=== PATIENT | male | born 1975 | race Hispanic/Latino ===

== ENCOUNTER 2017-08-17 16:55 | Emergency (ER) | payer OTHER ==
[2017-08-17] MEDS ORDERED: Mag-Al 1200 mg/1200 mg/30 ML UDCUP ONE (18:00)
[2017-08-17] MEDS ORDERED: Promethazine HCl 25 MG/ML VIAL ONE (18:00)
[2017-08-17] MEDS ORDERED: Lidocaine Viscous Sol 2% 15 ml UD Cup ONE (18:00)
[2017-08-17 18:07] LABS: #Basophils 0.1 thou/uL (0.0-0.2); #Eosinphils 0.1 thou/uL (0.0-0.7); #Lymphocytes 3.6 thou/uL (1.20-3.40); #Monocytes 0.9 thou/uL (0.11-0.59); #Neutrophils 5.8 thou/uL (1.40-6.50); %Basophils 0.5 % (0.0-1.0); %Eosinophils 0.5 % (0.0-10.0); %Lymphocytes 34.5 % (21.0-51.0); %Monocytes 8.6 % (0.0-10.0); %Neutrophils 55.9 % (42.0-75.0); Hemoglobin 15.6 g/dL (14.0-18.0); Mean Corpuscular HGB CONC 32.9 g/dL (32.0-36.0); Mean Corpuscular Volume 85.2 fl (80.0-94.0); Mean Platelet Volume 6.3 fL (7.4-10.4); Platelet Count 337 thou/uL (130-400); RBC Distribution Width 11.8 % (11.5-14.5); Red Blood Cell (RBC) Count 5.55 mill/uL (4.70-6.10); White Blood Cell (WBC) Count 10.4 thou/uL (4.8-10.8)
[2017-08-17 18:08] LABS: Bilirubin Small (Negative); Blood, Urine Negative (Negative); Clarity CLEAR (Clear); Glucose, Urine (Dipstick) >=1000 mg/dL (Negative); Leukocyte Negative (Negative); Nitrite Negative (Negative); Protein, Urine (Dipstick) 30 mg/dL (Neg-Trace); Urobilinogen 0.2 mg/dL (0.2-1.0); pH, Urine 5.5 (5.0-9.0)
[2017-08-17 18:14] LABS: Bacteria/HPF None Seen HPF (None Seen); Hyaline Casts/LPF 0-3 HYALINE CAST LPF (0-3 Hyaline); Pathc Cast-AUWi Flag 0.29 (0-2.49); RBC/HPF 0-3 HPF (0-3); Squamous Epithelial None Seen HPF (0-3); WBC/HPF 0-3 HPF (0-3)
[2017-08-17 18:16] LABS: Specific Gravity, Urine 1.043 (1.002-1.036)
[2017-08-17 18:19] LABS: MONO NEGATIVE CONTROL ZONE White (Negative) (White); MONO POSITIVE CONTROL Pink Line (Positive) (PINK/RED); Mononucleosis NEGATIVE (NEGATIVE)
--- NOTE | 2017-08-17 18:33 | RAD ---
ABDOMINAL SURVEY WITH UPRIGHT CHEST AND TWO VIEW ABDOMEN: 08/17/17 INDICATIONS: Abdominal pain with vomiting. A small nodule overlying the right mid lung is noted. This was seen on a prior PA chest of 08/28/14 a nd does not appear significantly changed. Lungs otherwise appear clear. Two views of abdomen shows scattered stool and gas throughout the colon. No abnormal calcification. N o significant small bowel gas. No evidence of free intraperitoneal air. IMPRESSION: No acute findings. POS: [facility]
[2017-08-17 18:37] LABS: ALT (SGPT) 24 U/L (8-55); AST (SGOT) 14 U/L (5-34); Albumin 4.3 g/dL (3.5-5.0); Alkaline Phosphatase 95 U/L (40-150); Anion Gap 18 mmol/L (10-20); BUN (Urea Nitrogen) 17 mg/dL (8.9-20.6); Bilirubin, Total 0.9 mg/dL (0.2-1.2); Calc. Creatinine Clearance 0 mL/min (70-130); Calcium 9.5 mg/dL (7.8-10.44); Carbon Dioxide 23 mmol/L (22-29); Chloride 102 mmol/L (98-107); Estimated GFR-MDRD Greater than 90; Globulin 3.3 g/dL (2.4-3.5); Glucose 84 mg/dL (70-105); Lipase 14 U/L (8-78); Potassium 4.1 mmol/L (3.5-5.1); Protein, Total 7.6 g/dL (6.0-8.3); Sodium 139 mmol/L (136-145)
[2017-08-17] MEDS ORDERED: Ibuprofen 800 MG TAB ONE (19:48)
== END 2017-08-17 20:00 | disposition home or self-care (01) ==
LOC: ERS 16:55
DX: K52.9 Noninfective gastroenteritis and colitis, unspecified (principal); E11.9 Type 2 diabetes mellitus without complications; E78.5 Hyperlipidemia, unspecified; F41.9 Anxiety disorder, unspecified; F32.9 Major depressive disorder, single episode, unspecified; Z87.891 Personal history of nicotine dependence; Z79.01 Long term (current) use of anticoagulants; Z79.899 Other long term (current) drug therapy
CPT/HCPCS: 74022; 80053; 81003; 81015; 83690; 85025; 86308; 87081; 87430; 96365; J2550

== ENCOUNTER 2019-10-28 20:13 | Inpatient (IN) | payer OTHER ==
[~2019-10-28 20:13] MED LIST: Iopamidol 370 76% 100 ML VIAL ONE
[2019-10-28 21:59] LABS: #Basophils 0.1 thou/uL (0.0-0.2); #Eosinphils 0.2 thou/uL (0.0-0.7); #Lymphocytes 2.9 thou/uL (1.20-3.40); #Monocytes 1.5 thou/uL (0.11-0.59); #Neutrophils 6.7 thou/uL (1.40-6.50); %Basophils 0.6 % (0.0-1.0); %Eosinophils 1.6 % (0.0-10.0); %Lymphocytes 25.7 % (21.0-51.0); %Neutrophils 59.1 % (42.0-75.0); Hemoglobin 14.5 g/dL (14.0-18.0); Mean Corpuscular HGB CONC 33.6 g/dL (32.0-36.0); Mean Corpuscular Hemoglobin 29.2 pg (27.0-31.0); Mean Corpuscular Volume 86.9 fL (78.0-98.0); Mean Platelet Volume 7.4 fL (7.4-10.4); Platelet Count 280 thou/uL (130-400); RBC Distribution Width 11.7 % (11.5-14.5); Red Blood Cell (RBC) Count 4.96 mill/uL (4.70-6.10); White Blood Cell (WBC) Count 11.3 thou/uL (4.8-10.8)
[2019-10-28] MEDS ORDERED: Morphine 4 MG/ML VIAL ONE (21:59)
[2019-10-28] MEDS ORDERED: Ondansetron ODT 4 MG TAB ONE (21:59)
[2019-10-28 22:02] LABS: Bilirubin Negative (Negative); Blood, Urine Negative (Negative); Clarity Clear (Clear); Glucose, Urine (Dipstick) Greater than 1000 mg/dL (Negative); Ketone, Urine Negative (Negative); Leukocyte Negative Leu/uL (Negative); Nitrite Negative (Negative); Protein, Urine (Dipstick) Negative (Neg-Trace); Urobilinogen Normal mg/dL (Less than 2)
--- NOTE | 2019-10-28 22:11 | RAD ---
XR Chest 1 View Portable HISTORY: Postop infection COMPARISON: 08/28/2014 FINDINGS: The heart size is normal. The lungs are well expanded without focal areas of consolidation, pneumothorax or pleural effusions. IMPRESSION: No radiographic evidence of acute cardiopulmonary process.
--- NOTE | 2019-10-28 22:17 | CT ---
CT Abdomen Pelvis W Con HISTORY: Hernia repair on 10/18/2019. Infection at wound site which is getting worse COMPARISON: 09/03/2012 FINDINGS: The lung bases are clear. There is a 5 mm low-density lesion in the anterior aspect of the left lobe of the liver, posterior the dome. This is too small to characterize. No calcified gallstones are seen. The spleen, pancreas, adrenal glands and kidneys appear normal. No free air, free fluid or lymp hadenopathy is noted in the abdomen or pelvis. A normal-appearing appendix is present. There is fecal material in the colon and rectum. No abdominal aortic aneurysm is seen. There are degenerative changes in the spine. There is edema in the subcutaneous venous fat of the anterior abdominal wall with a small amount of a ir at the level of the umbilicus. There is also some fluid and soft tissue density in this region without definite loculation. IMPRESSION: Probable phlegmonous changes in the region of the umbilicus. Infection cannot be excluded .
[2019-10-28 22:21] LABS: ALT (SGPT) 17 U/L (8-55); AST (SGOT) 13 U/L (5-34); Albumin 4.1 g/dL (3.5-5.0); Alkaline Phosphatase 112 U/L (40-110); Anion Gap 13 mmol/L (10-20); BUN (Urea Nitrogen) 12 mg/dL (8.9-20.6); Bilirubin, Total 0.5 mg/dL (0.2-1.2); Calc. Creatinine Clearance 0 mL/min (70-130); Calcium 9.3 mg/dL (7.8-10.44); Carbon Dioxide 30 mmol/L (22-29); Chloride 98 mmol/L (98-107); Estimated GFR-MDRD Greater than 90; Globulin 3.6 g/dL (2.4-3.5); Glucose 136 mg/dL (70-105); Potassium 4.3 mmol/L (3.5-5.1); Protein, Total 7.7 g/dL (6.0-8.3); Sodium 137 mmol/L (136-145)
[2019-10-28] MEDS ORDERED: Sodium Chloride 0.9% 100 ML ONE (22:32)
[2019-10-28] MEDS ORDERED: Cefepime 2 GM VIAL ONE (22:32)
[2019-10-28] MEDS ORDERED: Vancomycin 1.5 GRAM/300 ML BAG 1.5 GM in Premix Bag 1 BAG IVPB SCH (23:00)
--- NOTE | 2019-10-28 23:09 | PDOC.HHP ---
Hospitalist HPI - History of Present Illness Abdominal pain History of Present Illness: Patient is a 44-year-old male with past medical history significant for hernia repair and diabetes. He states that he had laparoscopic surgery at [facility] for hernia repair on 10/18/2019. He states that the wound site got infected and he was seen in the [facility] ER on 10/26/2019. They did an I& D at the bedside after performing a CT scan. He was started on doxycycline after being given a dose of IV Rocephin. He states that he has had increased redness and pain at the site of the surgery near the umbilicus since that time. He denies any further drainage. He describes abdominal pain as aching in the lower mid area that has not gone away since his surgery. He denies any fever, chest pain, nausea, vomiting, shortness of breath, contact with sick persons, incisional site drainage. ED Course: Today in the ER they completed lab work, chest x-ray, CT of the abdomen, and urinalysis. He received a dose of Zofran, morphine, cefepime, and vancomycin. Hospitalist ROS - Review of Systems Constitutional: denies: fever, chills, sweats, weakness, malaise, other Eyes: denies: pain, vision change, conjunctivae inflammation, eyelid inflammation, redness, other ENT: denies: ear pain, ear discharge, nose pain, nose discharge, nose congestion , mouth pain, mouth swelling, throat pain, throat swelling, other Respiratory: denies: cough, dry, shortness of breath, hemoptysis, SOB with excertion, pleuritic pain, sputum, wheezing, other Cardiovascular: denies: chest pain, palpitations, orthopnea, paroxysmal noc. dyspnea, edema, light headedness, other Genitourinary: denies: dysuria, frequency, incontinence, hematuria, retention, other Musculoskeletal: denies: neck pain, shoulder pain, arm pain, back pain, hand pain, leg pain, foot pain, other Skin: reports: other (Redness of the abdomen at surgical site) Neurological: denies: weakness, numbness, incoordination, change in speech, confusion, seizures, other All other systems reviewed; all pertinent +/- noted in HPI/Subj - Medication Medications: Allergies: Acetaminophen, cephalexin, Glucophage, hydrocodone, Keflex, metformin, [place], penicillin, tramadol Current medications: doxycycline hyclate oral TueOct 28, 2019 21:06 SKYLER Moya, Sania tablet : Strength - 100 mg : ORAL Patient Dose: 1 tab(s) Oral 2 times a day. oxyCODONE TueOct 28, 2019 21:07 SKYLER Moya, Sania capsule : Strength - 5 mg : ORAL Patient Dose: 5/325mg tab(s) Oral every 6 hours PRN. atorvastatin TueOct 28, 2019 21:08 SKYLER Moya, June TABLET : Strength - 10 mg : ORAL Patient Dose: 40 mg Oral once a day (at bedtime). Lexapro TueOct 28, 2019 21:08 SKYLER Moya, June TABLET : Strength - 20 mg : ORAL Patient Dose: 1 tab(s) Oral once a day. Farxiga TueOct 28, 2019 21:08 SKYLER Moya, Sania TABLET : Strength - 10 mg : ORAL Patient Dose: 1 tab(s) Oral once a day. gabapentin TueOct 28, 2019 21:09 SKYLER Moya, June capsule : Strength - 300 mg : ORAL Patient Dose: 2 tab(s) Oral 2 times a day. CeleBREX TueOct 28, 2019 21:09 SKYLER Moya, Sania capsule : Strength - 200 mg : ORAL Patient Dose: 1 cap(s) Oral 2 times a day. glipiZIDE TueOct 28, 2019 21:11 SKYLER Moya, Sania TABLET : Strength - 5 mg : ORAL Patient Dose: 1 tab(s) Oral 3 times a day. losartan TueOct 28, 2019 21:11 SKYLER Moya, June TABLET : Strength - 25 mg : ORAL Patient Dose: 100 mg Oral once a day. multivitamin oral TueOct 28, 2019 21:11 SKYLER Moya, Sania TABLET : ORAL Patient Dose: 1 tab(s) Oral once a day. Protonix oral TueOct 28, 2019 21:11 SKYLER Moya, June TABLET, DELAYED RELEASE (ENTERIC COATED) : Strength - 40 mg : ORAL Patient Dose: 1 tab(s) Oral once a day. hyoscyamine TueOct 28, 2019 21:11 SKYLER Moya, June TABLET : Strength - 0.15 mg : ORAL Patient Dose: 0.375 mg Oral every 12 hours. Actos TueOct 28, 2019 21:11 SKYLER Moya, Sania TABLET : Strength - 30 mg : ORAL Patient Dose: 1 tab(s) Oral once a day. Reglan oral TueOct 28, 2019 21:11 SKYLER Moya, Sania TABLET : Strength - 10 mg : ORAL Patient Dose: 1 tab(s) Oral 2 times a day. Zanaflex [place] Oct 28, 2019 21:12 SKYLER Moya, Sania capsule : Strength - 2 mg : ORAL Patient Dose: 1-2 tab(s) Oral As Needed. Hospitalist History - Past Medical History Source: patient Cardiac: reports: HTN, Hyperlipidemia Psych: reports: Anxiety, Depression Rheumatologic: reports: Fibromyalgia Endocrine: reports: Diabetes (Type II) - Past Surgical History Past Surgical History: reports: Hernia Repair, Tonsillectomy - Family History Family History: reports: Other (Coronary artery disease) - Social History Smoking Status: Current some day smoker Tobacco Type: cigarettes Alcohol: reports: Occassional Drugs: reports: none - Exam General Appearance: NAD, awake alert Eye: PERRL, anicteric sclera ENT: normocephalic atraumatic, moist mucosa Neck: supple, no lymphadenopathy Heart: RRR (Tachycardic), no murmur, no gallops, no rubs, normal peripheral pulses Respiratory: CTAB, no wheezes, no rales, no ronchi Gastrointestinal: normal bowel sounds, tender to palpation, voluntary guarding Extremities: no cyanosis, no edema Skin - other findings: Erythema below umbilicus Psychiatric: normal affect, normal behavior Hospitalist Results - Labs Result Diagrams: 10/28/19 21:45 10/28/19 21:44 Lab results: WBC 11.3 thou/uL (4.8-10.8) H 10/28/19 21:45 Hgb 14.5 g/dL (14.0-18.0) 10/28/19 21:45 Hct 43.1 % (42.0-52.0) 10/28/19 21:45 MCV 86.9 fL (78.0-98.0) 10/28/19 21:45 Plt Count 280 thou/uL (130-400) 10/28/19 21:45 Neutrophils % 59.1 % (42.0-75.0) 10/28/19 21:45 Sodium 137 mmol/L (136-145) 10/28/19 21:44 Potassium 4.3 mmol/L (3.5-5.1) 10/28/19 21:44 Chloride 98 mmol/L (98-107) 10/28/19 21:44 Carbon Dioxide 30 mmol/L (22-29) H 10/28/19 21:44 BUN 12 mg/dL (8.9-20.6) 10/28/19 21:44 Creatinine 0.72 mg/dL (0.7-1.3) 10/28/19 21:44 Glucose 136 mg/dL (70-105) H 10/28/19 21:44 Lactic Acid 0.9 mmol/L (0.5-2.2) 10/28/19 21:45 Calcium 9.3 mg/dL (7.8-10.44) 10/28/19 21:44 Total Bilirubin 0.5 mg/dL (0.2-1.2) 10/28/19 21:44 AST 13 U/L (5-34) 10/28/19 21:44 ALT 17 U/L (8-55) 10/28/19 21:44 Alkaline Phosphatase 112 U/L (40-110) H 10/28/19 21:44 Serum Total Protein 7.7 g/dL (6.0-8.3) 10/28/19 21:44 Albumin 4.1 g/dL (3.5-5.0) 10/28/19 21:44 Urine Ketones Negative mg/dL (Negative) 10/28/19 Unknown Urine Blood Negative (Negative) 10/28/19 Unknown Urine Nitrite Negative (Negative) 10/28/19 Unknown Ur Leukocyte Esterase Negative Lucila/uL (Negative) 10/28/19 Unknown Laboratory Tests 10/28/19 21:45 Lactic Acid 0.9 - Radiology Interpretation CT scan - abdomen Status: report reviewed by me Additional Comment: IMPRESSION: Probable phlegmonous changes in the region of the umbilicus. Infection cannot be excluded Chest x-ray Status: report reviewed by me Additional Comment: IMPRESSION: No radiographic evidence of acute cardiopulmonary process. Hospitalist H&P A/P - Problem (1) Cellulitis Code(s): L03.90 - CELLULITIS, UNSPECIFIED Status: Acute (2) Diabetes mellitus, type 2 Status: Chronic (3) Hyperlipidemia Code(s): E78.5 - HYPERLIPIDEMIA, UNSPECIFIED Status: Chronic - Plan Plan: Cellulitis Start patient on clindamycin Await blood culture results Repeat a.m. labs Continue to monitor vital signs Diabetes type 2 Accu-Cheks AC/HS Cover with mild SSI Restart patient's home medications Hyperlipidemia Restart patient's home medications VTE prophylaxis with SCDs, GI prophylaxis with Protonix CODE STATUS: Full Surrogate decision maker: , Ibis
[2019-10-28] MEDS ORDERED: Dextrose 5% in Water 1,000 ML IV PRN (23:24)
[2019-10-28] MEDS ORDERED: Dextrose 50% Abboject 50 ML SYRINGE SLOW IVP PRN (23:24)
[2019-10-28] MEDS ORDERED: Ibuprofen 200 MG TAB PO PRN (23:31)
[2019-10-28] MEDS ORDERED: Clindamycin/D5W 900 MG in Premix Bag 1 BAG IVPB SCH (23:59)
[2019-10-29] MEDS ORDERED: diphenhydrAMINE 50 MG/ML VIAL ONE (01:00)
[2019-10-29 03:02] VITALS: BMI 29.5
[2019-10-29] MEDS ORDERED: Morphine 2 MG/ML VIAL SLOW IVP SCH (03:15)
[2019-10-29] MEDS ORDERED: diphenhydrAMINE 25 MG in Sodium Chloride 0.9% 50 ML IVPB SCH (03:30)
[2019-10-29] MEDS ORDERED: Acetaminophen 325 MG TAB PO PRN (04:39)
[2019-10-29 05:31] LABS: #Basophils 0.1 thou/uL (0.0-0.2); #Eosinphils 0.2 thou/uL (0.0-0.7); #Lymphocytes 2.8 thou/uL (1.20-3.40); #Monocytes 1.5 thou/uL (0.11-0.59); #Neutrophils 5.7 thou/uL (1.40-6.50); %Basophils 0.5 % (0.0-1.0); %Eosinophils 2.3 % (0.0-10.0); %Lymphocytes 27.2 % (21.0-51.0); %Monocytes 14.2 % (0.0-10.0); %Neutrophils 55.7 % (42.0-75.0); Hemoglobin 12.7 g/dL (14.0-18.0); Mean Corpuscular HGB CONC 32.7 g/dL (32.0-36.0); Mean Corpuscular Hemoglobin 28.4 pg (27.0-31.0); Mean Corpuscular Volume 86.8 fL (78.0-98.0); Mean Platelet Volume 7.5 fL (7.4-10.4); Platelet Count 267 thou/uL (130-400); RBC Distribution Width 11.6 % (11.5-14.5); Red Blood Cell (RBC) Count 4.49 mill/uL (4.70-6.10); White Blood Cell (WBC) Count 10.2 thou/uL (4.8-10.8)
[2019-10-29 05:47] LABS: Anion Gap 13 mmol/L (10-20); BUN (Urea Nitrogen) 13 mg/dL (8.9-20.6); Calc. Creatinine Clearance 149 mL/min (70-130); Calcium 8.4 mg/dL (7.8-10.44); Carbon Dioxide 26 mmol/L (22-29); Chloride 98 mmol/L (98-107); Estimated GFR-MDRD Greater than 90; Glucose 316 mg/dL (70-105); Potassium 3.7 mmol/L (3.5-5.1); Sodium 133 mmol/L (136-145)
[2019-10-29] MEDS: Clindamycin/D5W 900 MG in Premix Bag 1 BAG IVPB SCH ×3 (06:37→21:55)
[2019-10-29] MEDS: HumaLOG 300 UNITS/3 ML VIAL SC PRN ×2 (06:48→20:26)
[2019-10-29] MEDS ORDERED: tiZANidine HCl 4 MG TAB PO PRN (07:32)
[2019-10-29] MEDS ORDERED: Dapagliflozin Propanediol 5 MG TAB PO SCH (09:00)
[2019-10-29] MEDS: Vancomycin HCl 1.25 GM in Sodium Chloride 0.9% 250 ML 300 ML IVPB SCH ×2 (09:20→18:24)
[2019-10-29] MEDS: Gabapentin 300 MG CAP PO SCH ×2 (09:21→20:14)
[2019-10-29] MEDS: Pioglitazone HCl 15 MG TAB PO SCH (09:21)
[2019-10-29] MEDS: Losartan 25 MG TAB PO SCH (09:21)
[2019-10-29] MEDS: Escitalopram Oxalate 20 mg Tablet PO SCH (09:22)
[2019-10-29] MEDS ORDERED: EPHEDRINE 25 MG/5 ML SYRINGE ONE (09:44)
[2019-10-29] MEDS ORDERED: Lidocaine 1% PF 5 ML VIAL ONE (09:44)
[2019-10-29] MEDS ORDERED: Ondansetron PF 4 MG/2 ML Vial ONE (09:44)
[2019-10-29] MEDS ORDERED: PROPOFOL 200 MG/20 ML VIAL ONE (09:44)
[2019-10-29 10:53] LABS: Troponin I Less than 0.010 ng/mL (< 0.028)
[2019-10-29] MEDS ORDERED: Ketorolac Tromethamine 30 MG/ML VIAL IVP PRN (11:46)
[2019-10-29] MEDS ORDERED: Ketorolac Tromethamine 30 MG/ML VIAL IVP SCH (12:00)
[2019-10-29] MEDS ORDERED: Acetaminophen 500 MG TAB PO SCH (12:00)
--- NOTE | 2019-10-29 12:30 | CON ---
DATE OF CONSULTATION: HISTORY OF PRESENT ILLNESS: Mark Lee is a 44-year-old male patient, had umbilical hernia repair at [facility] on October 17. He does not know whether mesh was used or not. He had a supraumbilical incision. This was done as an open repair by Dr. Philippe. The patient states he went back to the emergency room in 1 to 2 days postoperatively, had pain around the area and redness in the area, was aspirated by the emergency room physician as he states the surgeon refused to come into see him. He does not recall the nature of the fluid aspirated nor the results of any cultures. He presents to our emergency room yesterday, admitted by the hospitalist for increased redness. He has remained afebrile. His white count was 11 yesterday, 10 today. CAT scan of the abdomen and pelvis revealed a complex fluid collection infraumbilical and area of redness and tenderness. There were no bowel loops. The hernia repair appears to be intact. As he is having increased pain and there is significant redness and induration and tenderness, I would recommend incision and drainage and healing by secondary intention with wound VAC application. The patient is agreeable, we will plan that today. Unfortunately, despite n.p.o. instructions, he ate a peach at 8:00 this morning. COVID testing is pending and results should be available this afternoon. ALLERGIES: CEPHALEXIN, HYDROCODONE, METFORMIN, PENICILLINS, TRAMADOL. SOCIAL HISTORY: Tobacco, 1/2 pack per day. Alcohol, rarely. MEDICATIONS: 1. Zanaflex. 2. Reglan. 3. . 4. Protonix. 5. Gabapentin. 6. Doxycycline. 7. Pioglitazone. 8. Cozaar. 9. Lexapro. 10. . 11. Atorvastatin. PAST SURGICAL HISTORY: Tonsillectomy and adenoidectomy, left carpal tunnel release, circumcision, umbilical hernia repair on October 17 at [facility] in 2019. PAST MEDICAL HISTORY: Diabetes mellitus type 2, non-insulin dependent; hypertension; occasionally elevated cholesterol, which he off and on takes medications for; fibromyalgia. REVIEW OF SYSTEMS: Ten-point noncontributory. FAMILY HISTORY: Noncontributory. PHYSICAL EXAMINATION: VITAL SIGNS: Height is 5 feet and 9 inches, weight 200 pounds, 29 BMI. Temperature 98.2, pulse 78, blood pressure 113/74. HEAD, EARS, EYES, NOSE, AND THROAT: Unremarkable. LUNGS: Clear to auscultation. CARDIAC: Regular rate and rhythm without murmur or gallop. ABDOMEN: Soft. Umbilical area reveals a supraumbilical scar well healed. Below the umbilicus, there is an area of induration, redness, exquisite tenderness. It is a raised area, very tender. EXTREMITIES: Unremarkable. ASSESSMENT AND PLAN: 1. Wound infection postoperatively. We would recommend incision and drainage, probably wound VAC application, healing by secondary intention. He understands risks and benefits of procedure, and consents. We will plan that today after adequate n.p.o. status and awaiting COVID screening. There has been no history of COVID exposure or illness. He reports a negative COVID test at [facility] last week preoperatively. 2. Diabetes mellitus, type 2. 3. Fibromyalgia. 4. Hypertension. 5. Elevated cholesterol. Job ID: [id number]
--- NOTE | 2019-10-29 13:01 | PDOC.HOSPP ---
- Subjective Encounter Date: 10/29/19 Encounter Time: 09:45 Subjective: c/o abd pain around the surgical site with redness and elevation of an area below the umbilicus no bm today, no nausea or vomiting - Objective Vital Signs & Weight: Vital Signs (12 hours) Temp Pulse Resp BP BP Pulse Ox 10/29/19 11:17 98.2 F 78 16 113/74 97 10/29/19 07:53 98.2 F 82 16 120/64 96 10/29/19 06:35 86 16 119/73 95 10/29/19 04:31 99 F 95 16 126/77 97 10/29/19 02:25 98.6 F 93 18 121/79 95 Weight Weight 200 lb Result Diagrams: 10/29/19 04:59 10/29/19 04:59 Additional Labs: Accuchecks 10/29/19 11:24 POC Glucose 150 H Hospitalist ROS - Medication Medications: Active Medications Generic Name Dose Route Start Last Admin Trade Name Freq PRN Reason Stop Dose Admin Escitalopram Oxalate 20 mg 10/29/19 09:00 10/29/19 09:22 Lexapro PO 20 mg DAILY ANTHONY Administration Gabapentin 600 mg 10/29/19 09:00 10/29/19 09:21 Neurontin PO 600 mg BID ANTHONY Administration Vancomycin HCl 1.25 gm/ Sodium 300 mls @ 200 mls/hr 10/29/19 08:00 10/29/19 09:20 Chloride IVPB 300 mls 0800,1600,2359 ANTHONY Administration Clindamycin Phosphate/Dextrose 50 mls @ 100 mls/hr 10/29/19 06:00 10/29/19 06 :37 900 mg/ Device IVPB 50 mls Q8HR ANTHONY Administration Insulin Human Lispro 0 units 10/28/19 23:24 10/29/19 06:48 Humalog SC 5 unit .MILD SLIDING SCALE PRN Administration Mild Correctional Scale Losartan Potassium 100 mg 10/29/19 09:00 10/29/19 09:21 Cozaar PO 100 mg DAILY ANTHONY Administration Pantoprazole Sodium 40 mg 10/29/19 09:00 10/29/19 09:22 Protonix PO 40 mg DAILY ANTHONY Administration Pioglitazone HCl 30 mg 10/29/19 09:00 10/29/19 09:21 Actos PO 30 mg DAILY ANTHONY Administration - Exam General Appearance: awake alert Eye: PERRL, anicteric sclera ENT: no oropharyngeal lesions, moist mucosa Neck: supple, no JVD Heart: RRR, no murmur Respiratory: no wheezes, no rales Gastrointestinal: soft, normal bowel sounds Gastrointestinal - other findings: has induration and raised area beneath umbilicus suspicious for abscess, er Extremities: no cyanosis, no edema Neurological: cranial nerve grossly intact, no focal deficits Psychiatric: normal affect, A&O x 3 Hosp A/P (1) Cellulitis Code(s): L03.90 - CELLULITIS, UNSPECIFIED Status: Acute Qualifiers: Site of cellulitis of trunk: umbilicus (2) History of umbilical hernia repair Code(s): Z98.890 - OTHER SPECIFIED POSTPROCEDURAL STATES; Z87.19 - PERSONAL HISTORY OF OTHER DISEASES OF THE DIGESTIVE SYSTEM Status: Acute (3) Diabetes mellitus, type 2 Status: Chronic Qualifiers: Diabetes mellitus chcf insulin use: without superintendent container 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
[2019-10-29 15:04] LABS: SARS-CoV-2 MS2 Positive; SARS-CoV-2 N Gene Negative; SARS-CoV-2 S Gene Negative; SARS-CoV-2 by NAA Not Detected (NotDetected); SARS-CoV-2 orf1ab Negative
[2019-10-29] MEDS: Sodium Chloride 0.9% 1,000 ML IV SCH ×2 (15:28→20:27)
[2019-10-29] MEDS ORDERED: Fentanyl 100 MCG/2 ML VIAL ONE (16:12)
[2019-10-29] MEDS ORDERED: Ibuprofen 600 MG TAB PO PRN (16:41)
[2019-10-29] MEDS ORDERED: Bupivacaine 0.25% HCL 30 ML VIAL ONE (16:52)
[2019-10-29] MEDS ORDERED: Lidocaine 1% w/Epinephrine 1:100K 20 ML VIAL ONE (16:52)
[2019-10-29] MEDS ORDERED: Midazolam HCl 2 mg/2 ml Vial ONE (16:54)
[2019-10-29] MEDS ORDERED: Ibuprofen 200 MG TAB PO PRN (16:57)
[2019-10-29] MEDS: Atorvastatin Calcium 20 MG TAB PO SCH (20:14)
[2019-10-29] MEDS: Acetaminophen 500 MG TAB PO PRN (22:05)
[2019-10-29 23:13] LABS: Vancomycin, Trough 13.8 ug/mL
--- NOTE | 2019-10-29 23:18 | OP ---
DATE OF PROCEDURE: 10/29/2019 [facility]OPERATIVE DIAGNOSIS: [facility]. POSTOPERATIVE DIAGNOSIS: [facility] with postoperative infection. PROCEDURE PERFORMED: Incision and drainage of postoperative wound infection with abscess, culture and sensitivity submitted. ANESTHESIA: General, local 0.5% Marcaine 30 mL mixed with 1% Xylocaine with epinephrine 20 mL, total volume used. DESCRIPTION OF PROCEDURE: The patient was taken to the operating room, where under general anesthesia, abdomen was prepared with ChloraPrep and draped in routine fashion. Local anesthetic mixture was infiltrated into the skin and subcutaneous tissue about the operative site. Infraumbilical incision was made and carried down to skin and subcutaneous tissue, down to the fascia which palpated to be intact. Some of the redundant suture was removed. There was abundant purulent material sent for culture and sensitivity. The incision was about 4 cm infraumbilical. The supraumbilical surgical incision was intact. Wound Care Team arrived to place wound VAC after wound irrigated. The patient tolerated the procedure well. Job ID: [id number]
[2019-10-29] MEDS: Vancomycin HCl 1.25 GM in Sodium Chloride 0.9% 250 ML 250 ML IVPB SCH (23:44)
[2019-10-30] MEDS: Sodium Chloride 0.9% 1,000 ML IV SCH ×3 (04:47→23:00)
[2019-10-30] MEDS: Acetaminophen 500 MG TAB PO PRN ×3 (06:19→21:43)
[2019-10-30] MEDS: Clindamycin/D5W 900 MG in Premix Bag 1 BAG IVPB SCH ×3 (06:24→23:03)
[2019-10-30] MEDS: HumaLOG 300 UNITS/3 ML VIAL SC PRN ×3 (06:24→21:54)
[2019-10-30 07:35] LABS: Troponin I 0.012 ng/mL (< 0.028)
[2019-10-30 10:38] LABS: Troponin I Less than 0.010 ng/mL (< 0.028)
[2019-10-30] MEDS: Losartan 25 MG TAB PO SCH (11:41)
[2019-10-30] MEDS: Pioglitazone HCl 15 MG TAB PO SCH (11:42)
[2019-10-30] MEDS: Gabapentin 300 MG CAP PO SCH ×2 (11:42→21:40)
[2019-10-30] MEDS: Empagliflozin 25 MG TAB PO SCH (11:43)
[2019-10-30] MEDS: Escitalopram Oxalate 20 mg Tablet PO SCH (11:50)
--- NOTE | 2019-10-30 12:00 | PDOC.HOSPP ---
- Subjective Encounter Date: 10/30/19 Encounter Time: 09:30 Subjective: has some pain where wound vac is placed no nausea overall feels better - Objective Vital Signs & Weight: Vital Signs (12 hours) Temp Pulse Resp BP BP Pulse Ox 10/30/19 07:33 98.8 F 80 20 138/72 100 10/30/19 03:42 98.3 F 71 18 117/75 99 10/29/19 23:44 98.4 F 97 16 118/73 97 Weight Weight 200 lb I&O: 10/29/19 10/30/19 10/31/19 06:59 06:59 06:59 Intake Total 900 Balance 900 Result Diagrams: 10/29/19 04:59 10/29/19 04:59 Additional Labs: Accuchecks 10/30/19 10/29/19 10/29/19 06:23 20:27 15:25 POC Glucose 203 H 290 H 247 H 10/29/19 10/29/19 11:24 06:53 POC Glucose 150 H 337 H Hospitalist ROS - Medication Medications: Active Medications Generic Name Dose Route Start Last Admin Trade Name Freq PRN Reason Stop Dose Admin Acetaminophen 1,000 mg 10/29/19 11:46 10/30/19 06:19 Tylenol PO 1,000 mg Q6H PRN Administration Moderate Pain (4-6) Atorvastatin Calcium 40 mg 10/29/19 21:00 10/29/19 20:14 Lipitor PO 40 mg HS ANTHONY Administration Escitalopram Oxalate 20 mg 10/29/19 09:00 10/29/19 09:22 Lexapro PO 20 mg DAILY ANTHONY Administration Gabapentin 600 mg 10/29/19 09:00 10/29/19 20:14 Neurontin PO 600 mg BID ANTHONY Administration Clindamycin Phosphate/Dextrose 50 mls @ 100 mls/hr 10/29/19 06:00 10/30/19 06 :24 900 mg/ Device IVPB 50 mls Q8HR ANTHONY Administration Sodium Chloride 1,000 mls @ 120 mls/hr 10/29/19 12:00 10/30/19 04:47 Normal Saline 0.9% IV Not Given .Q8H20M ANTHONY Vancomycin HCl 1.25 gm/ Sodium 250 mls @ 166.667 mls/hr 10/29/19 23:59 23:44 Chloride IVPB 250 mls 0800,1600,2359 ANTHONY Administration Insulin Human Lispro 0 units 10/28/19 23:24 10/30/19 06:24 Humalog SC 3 unit .MILD SLIDING SCALE PRN Administration Mild Correctional Scale Insulin Human Lispro 0 units 10/28/19 23:24 10/29/19 20:26 Humalog SC 3 unit .BEDTIME SLIDING SC PRN Administration Bedtime Correctional Scale Losartan Potassium 100 mg 10/29/19 09:00 10/29/19 09:21 Cozaar PO 100 mg DAILY ANTHONY Administration Pantoprazole Sodium 40 mg 10/29/19 09:00 10/29/19 09:22 Protonix PO 40 mg DAILY ANTHONY Administration Pioglitazone HCl 30 mg 10/29/19 09:00 10/29/19 09:21 Actos PO 30 mg DAILY ANTHONY Administration - Exam General Appearance: awake alert Eye: PERRL, anicteric sclera ENT: no oropharyngeal lesions, moist mucosa Neck: supple, no JVD Heart: RRR, no murmur Respiratory: no wheezes, no rales Gastrointestinal: soft, non-distended, normal bowel sounds Gastrointestinal - other findings: wound vac+ Extremities: no cyanosis, no edema Neurological: cranial nerve grossly intact, no focal deficits Psychiatric: A&O x 3 Hosp A/P (1) Cellulitis Code(s): L03.90 - CELLULITIS, UNSPECIFIED Status: Acute Qualifiers: Site of cellulitis of trunk: umbilicus (2) History of umbilical hernia repair Code(s): Z98.890 - OTHER SPECIFIED POSTPROCEDURAL STATES; Z87.19 - PERSONAL HISTORY OF OTHER DISEASES OF THE DIGESTIVE SYSTEM Status: Acute (3) Diabetes mellitus, type 2 Status: Chronic Qualifiers: Diabetes mellitus 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
[2019-10-30] MEDS: Vancomycin HCl 1.25 GM in Sodium Chloride 0.9% 250 ML 250 ML IVPB SCH ×3 (12:21→21:35)
[2019-10-30] MEDS: Atorvastatin Calcium 20 MG TAB PO SCH (21:40)
[2019-10-31] MEDS: Vancomycin HCl 1.25 GM in Sodium Chloride 0.9% 250 ML 250 ML IVPB SCH (04:10)
[2019-10-31] MEDS: HumaLOG 300 UNITS/3 ML VIAL SC PRN ×4 (05:42→21:53)
[2019-10-31] MEDS: Sodium Chloride 0.9% 1,000 ML IV SCH (05:46)
[2019-10-31] MEDS: Clindamycin/D5W 900 MG in Premix Bag 1 BAG IVPB SCH (07:13)
--- NOTE | 2019-10-31 07:16 | PRG ---
DATE OF SERVICE: 10/30/2019 Mark Lee is doing well. Wound VAC is over his wound. It will be viewed tomorrow. His culture, Staphylococcus. Plan is for wound VAC care, oral antibiotics as an outpatient. He can be discharged at anytime when wound VAC outpatient is approved. He lives in [place]. Outpatient wound care will need to be ordered with a wound VAC. nurse outreach case manager to manage this. The patient should follow up in my office in 2 to 3 weeks. I will view his wound tomorrow. He is ready for discharge whenever outpatient wound care is arranged. Job ID: [id number]
[2019-10-31] MEDS ORDERED: Clindamycin/D5W 900 MG in Premix Bag 1 BAG IVPB SCH (08:00)
[2019-10-31] MEDS: Pioglitazone HCl 15 MG TAB PO SCH (09:14)
[2019-10-31] MEDS: Gabapentin 300 MG CAP PO SCH ×2 (09:15→21:40)
[2019-10-31] MEDS: Escitalopram Oxalate 20 mg Tablet PO SCH (09:15)
[2019-10-31] MEDS: Losartan 25 MG TAB PO SCH (09:15)
[2019-10-31] MEDS: Sulfameth/Trimethoprim DS 800-160mg TAB PO SCH ×2 (09:16→21:40)
[2019-10-31] MEDS: Empagliflozin 25 MG TAB PO SCH (10:16)
--- NOTE | 2019-10-31 11:07 | PRG ---
DATE OF SERVICE: 10/31/2019 Mark Lee is doing well today. Cultures have grown Staph aureus, sensitive to almost everything. The patient's wound looks very good. There is no cellulitis. The patient is ready to be discharged home on oral antibiotics. I will see him as needed in this hospitalization. He can go home with outpatient wound care, [facility] appointment, outpatient wound VAC, which is being arranged. We will change him to oral antibiotics and place a followup date in my office in a couple of weeks. The patient is being discharged home with Bactrim. Job ID: [id number]
[2019-10-31] MEDS: Atorvastatin Calcium 20 MG TAB PO SCH (21:40)
[2019-11-01] MEDS: HumaLOG 300 UNITS/3 ML VIAL SC PRN (06:23)
[2019-11-01] MEDS ORDERED: glipiZIDE 5 MG TAB PO SCH (07:30)
[2019-11-01] MEDS: Escitalopram Oxalate 20 mg Tablet PO SCH (09:26)
[2019-11-01] MEDS: Losartan 25 MG TAB PO SCH (09:26)
[2019-11-01] MEDS: Pioglitazone HCl 15 MG TAB PO SCH (09:26)
[2019-11-01] MEDS: Gabapentin 300 MG CAP PO SCH (09:26)
[2019-11-01] MEDS: Sulfameth/Trimethoprim DS 800-160mg TAB PO SCH (09:26)
[2019-11-01] MEDS: Empagliflozin 25 MG TAB PO SCH (09:26)
--- NOTE | 2019-11-01 12:19 | PDOC.HOSPP ---
- Subjective Encounter Date: 10/31/19 Encounter Time: 13:00 Subjective: no pain, feels better - Objective Vital Signs & Weight: Vital Signs (12 hours) Temp Pulse Resp BP Pulse Ox 11/01/19 08:55 98 11/01/19 07:19 98.4 F 89 16 128/81 98 11/01/19 02:56 97.9 F 90 16 127/80 97 Weight Admit Weight 200 lb Weight 200 lb I&O: 10/31/19 11/01/19 11/02/19 06:59 06:59 06:59 Intake Total 2457 Output Total 375 Balance 2082 Result Diagrams: 10/29/19 04:59 10/29/19 04:59 Additional Labs: Accuchecks 11/01/19 10/31/19 10/31/19 05:52 21:15 16:08 POC Glucose 320 H 322 H 367 H - Exam General Appearance: awake alert Eye: PERRL, anicteric sclera ENT: no oropharyngeal lesions, moist mucosa Neck: supple, no JVD Heart: RRR, no murmur Respiratory: no wheezes, no rales Gastrointestinal: soft, non-distended, normal bowel sounds Gastrointestinal - other findings: wound vac+ Extremities: no cyanosis, no edema Neurological: cranial nerve grossly intact, no focal deficits Psychiatric: normal affect, A&O x 3 Hosp A/P (1) Cellulitis Code(s): L03.90 - CELLULITIS, UNSPECIFIED Status: Acute Qualifiers: Site of cellulitis of trunk: umbilicus (2) History of umbilical hernia repair Code(s): Z98.890 - OTHER SPECIFIED POSTPROCEDURAL STATES; Z87.19 - PERSONAL HISTORY OF OTHER DISEASES OF THE DIGESTIVE SYSTEM Status: Acute (3) Diabetes mellitus, type 2 Status: Chronic Qualifiers: Diabetes mellitus 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
--- NOTE | 2019-11-01 14:52 | DIS ---
DATE OF ADMISSION: 10/29/2019 DATE OF DISCHARGE: 11/01/2019 DISCHARGE DISPOSITION: Home. PRIMARY DISCHARGE DIAGNOSES: Status post incision and drainage of postoperative wound infection with abscess with prior umbilical hernia repair done at [facility] by Dr. Philippe. SECONDARY DISCHARGE DIAGNOSES: Diabetes mellitus, type 2; dyslipidemia. PROCEDURES DONE DURING HOSPITALIZATION: The patient has had incision and drainage of infraumbilical abscess. He has had recent umbilical hernia repair done by Dr. Philippe at [facility]. Blood cultures x2, no growth. Abdominal abscess culture is growing Staph aureus, sensitive to Bactrim. H and H 12 and 39, platelet count 267, initial white count was 11. BUN 13, creatinine 0.8, albumin 4.1. Liver enzymes within normal limits. COVID-19 PCR was not detected on 10/29/2019. DISCHARGE MEDICATIONS: 1. Bactrim Double Strength one tablet twice daily for 7 days. 2. Motrin 400 mg p.o. 4 times daily p.r.n. 3. Zanaflex 2 mg p.o. three times daily p.r.n. 4. Pioglitazone 30 mg p.o. daily. 5. Farxiga 10 mg p.o. daily. 6. Atorvastatin 40 mg p.o. daily. 7. Lexapro 20 mg p.o. daily. 8. Gabapentin 600 mg p.o. twice daily. 9. Cozaar 100 mg p.o. daily. 10. Reglan 10 mg twice daily p.r.n. for nausea. 11. Protonix 40 mg p.o. daily. ALLERGIES: KEFLEX, PENICILLIN, METFORMIN, TRAMADOL, HYDROCODONE. DISCHARGE PLAN: The patient to follow up with Dr. Bass on 11/15/2019 at 9:20 a.m. He needs to follow up with Dr. Chinchilla in 1 week. The patient has been advised to check fingerstick glucose twice daily and record for a period of 10 days to follow up with primary care physician. BRIEF COURSE DURING HOSPITALIZATION: The patient initially got admitted on the with complaints of redness and swelling at his prior umbilical hernia repair site. The patient has had umbilical hernia repair done at [facility] by Dr. Philippe on 10/18/2019. He in fact had visited [facility] ER on 10/26/2019 with increasing pain and swelling. They aspirated his wound and was started on doxycycline. As the pain and redness got worse, the patient arrived here. The patient did not want to be transferred to see his primary general surgeon at [facility] and wanted to be treated here. In view of this, he has had consultation with Dr. Bass. The patient has had incision and drainage of the infraumbilical area abscess. This abscess wound was cultured and is currently growing Staph aureus resistant to penicillin, but sensitive to all other antibiotics. The patient's fingerstick glucose has been in the 300s. I have offered to give a prescription for glipizide 5 mg twice daily, but the patient prefers to follow up with his primary care physician, Dr. Chinchilla. He has been advised to check fingerstick glucose twice daily and record to show his primary care physician. He was strongly counseled to follow strict 1800 kilocalorie diet. He has been cleared by Dr. Bass for discharge. Outpatient wound VAC has been arranged today. The patient also has a [facility] with wound care arranged by Case Management. He is otherwise hemodynamically stable and is fit for discharge. Please note, I have seen and examined the patient on the day of discharge. Job ID: [id number] [facility]
[2019-11-01 17:22] VITALS: BP 134/82; TEMP 98.3
--- NOTE | 2019-11-04 17:15 | EKG ---
Test Reason : C/O CHEST PAIN Blood Pressure : / mmHG Vent. Rate : 081 BPM Atrial Rate : 081 BPM P-R Int : 144 ms QRS Dur : 090 ms QT Int : 378 ms P-R-T Axes : 056 -11 022 degrees QTc Int : 439 ms Normal sinus rhythm Normal ECG No previous ECGs available Confirmed by BRANDI PUGA (2) on 11/04/2019 5:14:43 PM Referred By: PATEL Confirmed By:BRANDI PUGA
--- NOTE | 2019-11-05 16:59 | EKG ---
Test Reason : C/O CHEST PAIN Blood Pressure : / mmHG Vent. Rate : 080 BPM Atrial Rate : 080 BPM P-R Int : 148 ms QRS Dur : 092 ms QT Int : 384 ms P-R-T Axes : 064 002 032 degrees QTc Int : 442 ms Normal sinus rhythm Normal ECG When compared with ECG of 29-OCT-2019 07:00, (Unconfirmed) No significant change was found Confirmed by BRANDI PUGA (2) on 11/05/2019 4:59:06 PM Referred By: SANTOS Confirmed By:BRANDI PUGA
== END 2019-11-01 11:55 | disposition home health service (06) | DRG 857 ==
LOC: ERS 20:13 → OBSVTOIN 10-29 02:49 → SURG B 10-29 02:49
PROVIDERS: ADMIT Internal Medicine; ATTEND Internal Medicine
PROC: 0J980ZZ Drainage of Abdomen Subcutaneous Tissue and Fascia, Open Approach (ICD-10-PCS; principal; 2019-10-29)
DX: T81.41XA Infection following a procedure, superficial incisional surgical site, initial encounter (principal); L03.311 Cellulitis of abdominal wall; L02.216 Cutaneous abscess of umbilicus; Z20.828 Contact with and (suspected) exposure to other viral communicable diseases; I10 Essential (primary) hypertension; E78.5 Hyperlipidemia, unspecified; F41.9 Anxiety disorder, unspecified; F32.9 Major depressive disorder, single episode, unspecified; B95.61 Methicillin susceptible Staphylococcus aureus infection as the cause of diseases classified elsewhere; E11.9 Type 2 diabetes mellitus without complications; Y83.8 Other surgical procedures as the cause of abnormal reaction of the patient, or of later complication, without mention of misadventure at the time of the procedure; M79.7 Fibromyalgia; F17.210 Nicotine dependence, cigarettes, uncomplicated; Z90.89 Acquired absence of other organs; Z98.890 Other specified postprocedural states; Z88.0 Allergy status to penicillin; Z88.1 Allergy status to other antibiotic agents; Z88.8 Allergy status to other drugs, medicaments and biological substances; Z87.19 Personal history of other diseases of the digestive system
CPT/HCPCS: 36415; 36416; 71045; 74177; 80048; 80053; 80202; 81003; 83605; 84484; 85025; 87040; 87070; 87077; 87186; 87205; 87635; 93005; 93010; 96365; 96366; 96367; 96375; 96376; G0378; J0692; J1200; J1885; J2250; J2270; J2405; J2704; J3010; J3370; J3490; J7050; Q0162; Q9967; S0020; U0003

== ENCOUNTER 2019-12-14 14:56 | Observation (INO) | payer OTHER ==
[2019-12-14] MEDS ORDERED: Boostrix 0.5 ML VIAL ONE (16:35)
[2019-12-14 19:58] VITALS: BMI 30.7
[2019-12-14] MEDS: Gabapentin 300 MG CAP PO SCH (21:01)
[2019-12-14] MEDS: Rosuvastatin 20 MG TAB PO SCH (21:01)
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
[2019-12-15] MEDS: Acetaminophen 325 MG TAB PO PRN ×2 (00:56→16:53)
[2019-12-15] MEDS: Naproxen 500 MG TAB PO PRN ×2 (00:56→12:32)
[2019-12-15] MEDS ORDERED: Morphine 2 MG/ML VIAL SLOW IVP SCH (04:45)
[2019-12-15] MEDS ORDERED: Ketorolac Tromethamine 30 MG/ML VIAL IVP SCH (04:45)
[2019-12-15 04:54] LABS: #Basophils 0.1 thou/uL (0.0-0.2); #Eosinphils 0.1 thou/uL (0.0-0.7); #Lymphocytes 2.8 thou/uL (1.20-3.40); #Monocytes 0.9 thou/uL (0.11-0.59); #Neutrophils 3.9 thou/uL (1.40-6.50); %Basophils 0.7 % (0.0-1.0); %Eosinophils 1.7 % (0.0-10.0); %Lymphocytes 35.8 % (21.0-51.0); %Monocytes 11.3 % (0.0-10.0); %Neutrophils 50.5 % (42.0-75.0); Mean Corpuscular HGB CONC 33.6 g/dL (32.0-36.0); Mean Corpuscular Hemoglobin 29.4 pg (27.0-31.0); Mean Corpuscular Volume 87.5 fL (78.0-98.0); Mean Platelet Volume 7.2 fL (7.4-10.4); Platelet Count 264 thou/uL (130-400); RBC Distribution Width 12.4 % (11.5-14.5); Red Blood Cell (RBC) Count 4.76 mill/uL (4.70-6.10); White Blood Cell (WBC) Count 7.8 thou/uL (4.8-10.8)
[2019-12-15 05:19] LABS: Amphetamine Detected (NotDetected); Barbiturates Screen Not Detected (NotDetected); Benzodiazepine Screen Detected (NotDetected); Cocaine Metabolite Screen Not Detected (NotDetected); Medtox Control Line Valid? VALID (VALID); Medtox Reader # READER 4; Methadone Not Detected (NotDetected); Methamphetamine Detected (NotDetected); Opiate Screen Not Detected (NotDetected); Oxycodone Screen Not Detected (NotDetected); Phencyclidine (PCP) Not Detected (NotDetected); THC/Cannabinoid Screen Detected (NotDetected); Tricyclic Screen Not Detected (NotDetected)
[2019-12-15 05:35] LABS: ALT (SGPT) 18 U/L (8-55); AST (SGOT) 14 U/L (5-34); Albumin 3.6 g/dL (3.5-5.0); Alkaline Phosphatase 96 U/L (40-110); Anion Gap 13 mmol/L (10-20); BUN (Urea Nitrogen) 13 mg/dL (8.9-20.6); Bilirubin, Total 0.6 mg/dL (0.2-1.2); Calc. Creatinine Clearance 184 mL/min (70-130); Calcium 8.3 mg/dL (7.8-10.44); Carbon Dioxide 24 mmol/L (22-29); Cardiac Risk 3.1 (Less than 4.5); Chloride 105 mmol/L (98-107); Cholesterol 103 mg/dl (< 200 Desired); Estimated GFR-MDRD Greater than 90; Globulin 2.6 g/dL (2.4-3.5); Glucose 212 mg/dL (70-105); HDL Cholesterol 33 mg/dL (>60 Neg Risk); LDL Cholesterol, Calculated 41 mg/dL; Potassium 3.6 mmol/L (3.5-5.1); Protein, Total 6.2 g/dL (6.0-8.3); Sodium 138 mmol/L (136-145); Triglycerides 145 mg/dL (Less than 150)
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
[2019-12-15 08:43] LABS: Bacteria/HPF None Seen HPF (None Seen); Bilirubin Negative (Negative); Blood, Urine Negative (Negative); Clarity Clear (Clear); Glucose, Urine (Dipstick) Greater than 1000 mg/dL (Negative); Ketone, Urine Negative (Negative); Leukocyte Negative Leu/uL (Negative); Nitrite Negative (Negative); Protein, Urine (Dipstick) Negative (Neg-Trace); RBC/HPF 0-3 HPF (0-3); Specific Gravity, Urine 1.036 (1.002-1.036); Squamous Epithelial None Seen HPF (0-3); Urobilinogen Normal mg/dL (Less than 2); WBC/HPF 0-3 HPF (0-3); pH, Urine 6.5 (5.0-9.0)
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
[2019-12-15] MEDS: Mupirocin 2% Ointment 22 GM Tube TOP SCH ×3 (10:33→22:15)
[2019-12-15] MEDS: Enoxaparin Sodium 40 MG/0.4 ML SYRINGE SC SCH (10:33)
[2019-12-15] MEDS: Losartan 25 MG TAB PO SCH (10:34)
[2019-12-15] MEDS: Gabapentin 300 MG CAP PO SCH ×2 (10:34→22:15)
[2019-12-15] MEDS: Escitalopram Oxalate 20 mg Tablet PO SCH (10:34)
[2019-12-15] MEDS: Aspirin 325 mg Enteric Coated Tablet PO SCH (10:34)
--- NOTE | 2019-12-15 12:28 | MRI ---
MRI BRAIN NONCONTRAST: DATE: 12/15/2019 HISTORY: 44-year-old male with altered mental status: Confusion FINDINGS: The ventricles are normal in size and configuration. The FLAIR and gradient echo axial images are sig nificantly degraded by patient motion. There is no major intra-axial signal abnormality, restricted diffusion, midline shift or any other mass effect, recent intra-axial hemorrhage, or extra-axial flui d collection. IMPRESSION: Negative
[2019-12-15] MEDS: Insulin Regular 300 UNITS/3 ML VIAL SC PRN ×2 (12:33→16:53)
[2019-12-15 15:25] LABS: SARS-CoV-2 MS2 Positive; SARS-CoV-2 N Gene Negative; SARS-CoV-2 S Gene Negative; SARS-CoV-2 by NAA Not Detected (NotDetected); SARS-CoV-2 orf1ab Negative
[2019-12-15] MEDS: Rosuvastatin 20 MG TAB PO SCH (22:15)
[2019-12-15] MEDS ORDERED: Dextrose 50% Abboject 50 ML SYRINGE IVP PRN (23:45)
[2019-12-15] MEDS ORDERED: Dextrose 5% in Water 1,000 ML IV PRN (23:45)
[2019-12-15] MEDS ORDERED: Insulin Regular 300 UNITS/3 ML VIAL SC PRN (23:45)
[2019-12-15] MEDS ORDERED: HumaLOG 300 UNITS/3 ML VIAL SC PRN (23:50)
[2019-12-16] MEDS: Naproxen 500 MG TAB PO PRN ×2 (04:27→22:22)
[2019-12-16 05:04] LABS: #Eosinphils 0.1 thou/uL (0.0-0.7); #Lymphocytes 2.1 thou/uL (1.20-3.40); %Basophils 0.6 % (0.0-1.0); %Eosinophils 1.7 % (0.0-10.0); %Lymphocytes 29.4 % (21.0-51.0); %Monocytes 13.2 % (0.0-10.0); %Neutrophils 55.2 % (42.0-75.0); Mean Corpuscular Volume 87.8 fL (78.0-98.0); Mean Platelet Volume 7.5 fL (7.4-10.4); Platelet Count 263 thou/uL (130-400); RBC Distribution Width 12.4 % (11.5-14.5); Red Blood Cell (RBC) Count 4.83 mill/uL (4.70-6.10); White Blood Cell (WBC) Count 7.2 thou/uL (4.8-10.8)
[2019-12-16 05:23] LABS: Anion Gap 12 mmol/L (10-20); BUN (Urea Nitrogen) 16 mg/dL (8.9-20.6); Calc. Creatinine Clearance 204 mL/min (70-130); Calcium 8.7 mg/dL (7.8-10.44); Carbon Dioxide 25 mmol/L (22-29); Chloride 107 mmol/L (98-107); Estimated GFR-MDRD Greater than 90; Glucose 239 mg/dL (70-105); Potassium 3.8 mmol/L (3.5-5.1); Sodium 140 mmol/L (136-145)
[2019-12-16 05:46] LABS: Thyroid Stimulating Hormone 0.983 uIU/mL (0.35-4.94)
[2019-12-16] MEDS: Enoxaparin Sodium 40 MG/0.4 ML SYRINGE SC SCH (09:21)
[2019-12-16] MEDS: Mupirocin 2% Ointment 22 GM Tube TOP SCH ×3 (09:21→22:24)
[2019-12-16] MEDS: Aspirin 325 mg Enteric Coated Tablet PO SCH (09:21)
[2019-12-16] MEDS: Escitalopram Oxalate 20 mg Tablet PO SCH (09:22)
[2019-12-16] MEDS: Gabapentin 300 MG CAP PO SCH ×2 (09:22→22:20)
[2019-12-16] MEDS: Acetaminophen 325 MG TAB PO PRN ×2 (09:22→15:58)
[2019-12-16] MEDS: Losartan 25 MG TAB PO SCH (09:22)
[2019-12-16] MEDS: Insulin Regular 300 UNITS/3 ML VIAL SC PRN ×2 (11:02→17:27)
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
[2019-12-16] MEDS: glipiZIDE 5 MG TAB PO SCH (16:40)
[2019-12-16] MEDS: Rosuvastatin 20 MG TAB PO SCH (22:20)
[2019-12-16] MEDS: Metoclopramide HCl 10 MG TAB PO SCH (22:21)
[2019-12-16] MEDS: Hyoscyamine Sulfate ER 0.375 mg Tablet PO SCH (22:21)
[2019-12-17 05:34] LABS: Anion Gap 10 mmol/L (10-20); BUN (Urea Nitrogen) 17 mg/dL (8.9-20.6); Calc. Creatinine Clearance 192 mL/min (70-130); Calcium 8.3 mg/dL (7.8-10.44); Carbon Dioxide 28 mmol/L (22-29); Chloride 105 mmol/L (98-107); Estimated GFR-MDRD Greater than 90; Glucose 180 mg/dL (70-105); Potassium 4.1 mmol/L (3.5-5.1); Sodium 139 mmol/L (136-145)
[2019-12-17 06:14] LABS: Band 7 % (5-11); Eosinophils 3 % (0-10); Hemoglobin 13.2 g/dL (14.0-18.0); Lymphocytes 38 % (21-51); MDiff Complete? YES; Mean Corpuscular HGB CONC 33.5 g/dL (32.0-36.0); Mean Corpuscular Hemoglobin 29.5 pg (27.0-31.0); Mean Platelet Volume 7.6 fL (7.4-10.4); Monocytes 14 % (0-10); Neutrophil 38 % (42-75); Platelet Count 235 thou/uL (130-400); RBC Distribution Width 12.3 % (11.5-14.5); Red Blood Cell (RBC) Count 4.46 mill/uL (4.70-6.10); White Blood Cell (WBC) Count 6.8 thou/uL (4.8-10.8)
[2019-12-17] MEDS: Insulin Regular 300 UNITS/3 ML VIAL SC PRN ×2 (07:44→11:08)
[2019-12-17] MEDS ORDERED: Atorvastatin Calcium 40 MG TAB PO SCH (09:00)
[2019-12-17] MEDS ORDERED: Empagliflozin 25 MG TAB PO SCH (09:00)
[2019-12-17] MEDS ORDERED: Pioglitazone HCl 15 MG TAB PO SCH (09:00)
[2019-12-17] MEDS: glipiZIDE 5 MG TAB PO SCH ×2 (09:49→11:42)
[2019-12-17] MEDS: Aspirin 325 mg Enteric Coated Tablet PO SCH (09:50)
[2019-12-17] MEDS: Escitalopram Oxalate 20 mg Tablet PO SCH (09:50)
[2019-12-17] MEDS: Gabapentin 300 MG CAP PO SCH (09:50)
[2019-12-17] MEDS: Metoclopramide HCl 10 MG TAB PO SCH (09:50)
[2019-12-17] MEDS: Hyoscyamine Sulfate ER 0.375 mg Tablet PO SCH (09:51)
[2019-12-17] MEDS: Losartan 25 MG TAB PO SCH (09:51)
[2019-12-17] MEDS: Enoxaparin Sodium 40 MG/0.4 ML SYRINGE SC SCH (09:51)
--- NOTE | 2019-12-17 09:52 | MRI ---
MRI Lumbar Spine Noncontrast: HISTORY: Low back pain with pain running down left leg. Patient complains of pain and weakness in right lower extremity. COMPARISON: None FINDINGS: Minimal parapelvic renal cysts are seen. The remainder of the visualized retroperitoneal structures h ave a normal nonenhanced MRI appearance. Conus medullaris is normal in morphology and terminates at the L1 level. 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 L1-2: There is no disc bulge or disc herniation. Central spinal canal and neural foramina are patent. L2-3: There is no disc bulge or disc herniation. Central spinal canal and neural foramina are patent. L3-4: There is no disc bulge or disc herniation. Central spinal canal and neural foramina are patent. Mild facet degenerative changes are present. L4-5: Mild disc osteophyte complex with central disc protrusion. This does result in mass effect on t hecal sac and generalized mild to moderate narrowing of the central spinal canal. No significant neural foraminal narrowing is present. L5-S1: Mild loss of intervertebral disc height. Mild endplate degenerative changes are present. There is a disc osteophyte complex with central small disc extrusion the central disc extrusion does encroach on and likely contacts the traversing bilateral S1 nerve roots as a nerve roots exit the the kerry sac but does not displace the nerve roots. There is generalized moderate narrowing of the central spinal canal. Mild bilateral neural foraminal narrowing is present greater on the right. Mild endplate degenerative changes are present at this level with mild facet degenerative changes noted. IMPRESSION: Disc degenerative changes in the lower lumbar spine with disc osteophyte complexes and small central disc protrusion at L4-5 level and a central disc extrusion at the L5-S1 level. The disc extrusion at the L5-S1 level does encroach on the traversing bilateral S1 nerve roots and likely contacts the n erve roots without resulting in deformity or mass effect on the nerve roots. There is mild narrowing of each lateral recess at the L5-S1 level.
[2019-12-17] MEDS: Mupirocin 2% Ointment 22 GM Tube TOP SCH (09:53)
[2019-12-17] MEDS: Acetaminophen 325 MG TAB PO PRN (11:14)
[2019-12-17 11:37] VITALS: BP 134/79; TEMP 97.8
--- NOTE | 2019-12-17 12:45 | PDOC.HOSPP ---
- Subjective Encounter Date: 12/17/19 Encounter Time: 12:44 Subjective: Ms. Lee was seen today in follow-up of right lower extremity pain ans weakness. He was moving his leg well, when I entered the room, and did not appear to be in pain. Once he noticed me. he appeared to visibly have more pain. - Objective Vital Signs & Weight: Vital Signs (12 hours) Temp Pulse Resp BP Pulse Ox 12/17/19 11:37 97.8 F 70 16 134/79 99 12/17/19 11:05 63 13 104/69 12/17/19 09:59 111/78 12/17/19 07:44 97.9 F 86 16 99/79 96 12/17/19 04:00 97.6 F 50 L 18 142/79 H 97 Weight Admit Weight 220 lb 3.2 oz Weight 220 lb 3.2 oz I&O: 12/16/19 12/17/19 12/18/19 06:59 06:59 06:59 Intake Total 1030 1020 Output Total 1800 0 Balance -770 1020 Result Diagrams: 12/17/19 04:28 12/17/19 04:27 Additional Labs: Accuchecks 12/17/19 12/17/19 12/16/19 10:48 05:42 21:23 POC Glucose 233 H 169 H 169 H 12/16/19 17:14 POC Glucose 218 H Hospitalist ROS - Medication Medications: Active Medications Generic Name Dose Route Start Last Admin Trade Name Freq PRN Reason Stop Dose Admin Acetaminophen 650 mg 12/14/19 16:55 12/17/19 11:14 Acetaminophen 325 Mg Tab PO 650 mg Q6H PRN Administration Pain Aspirin 325 mg 12/15/19 09:00 12/17/19 09:50 Aspirin 325 Mg Enteric Coated Tablet PO 325 mg DAILY ANTHONY Administration Atorvastatin Calcium 40 mg 12/17/19 09:00 12/17/19 09:50 Atorvastatin Calcium 40 Mg Tab PO 40 mg DAILY ANTHONY Administration Enoxaparin Sodium 40 mg 12/15/19 09:00 12/17/19 09:51 Enoxaparin Sodium 40 Mg/0.4 Ml Syringe SC 40 mg 0900 ANTHONY Administration Escitalopram Oxalate 20 mg 12/15/19 09:00 12/17/19 09:50 Escitalopram Oxalate 20 Mg Tablet PO 20 mg DAILY ANTHONY Administration Gabapentin 600 mg 12/14/19 21:00 12/17/19 09:50 Gabapentin 300 Mg Cap PO 600 mg BID ANTHONY Administration Glipizide 5 mg 12/16/19 16:30 12/17/19 11:42 Glipizide 5 Mg Tab PO 5 mg 0730,1130,1630 ANTHONY Administration Hyoscyamine Sulfate 0.375 mg 12/16/19 21:00 12/17/19 09:51 Hyoscyamine Sulfate Er 0.375 Mg Tablet PO 0.375 mg BID ANTHONY Administration Insulin Human Regular 0 units 12/14/19 16:53 12/17/19 11:08 Insulin Regular 300 Units/3 Ml Vial SC 4 unit .MODERATE SLIDING SC PRN Administration Moderate Correctional Scale Losartan Potassium 100 mg 12/15/19 09:00 12/17/19 09:51 Losartan 25 Mg Tab PO 100 mg DAILY ANTHONY Administration Metoclopramide HCl 10 mg 12/16/19 21:00 12/17/19 09:50 Metoclopramide Hcl 10 Mg Tab PO 10 mg BID ANTHONY Administration Miscellaneous Medication 25 mg 12/17/19 09:00 12/17/19 11:08 Empagliflozin 25 Mg Tab PO 25 mg DAILY ANTHONY Administration Mupirocin 0 gm 12/15/19 09:00 12/17/19 09:53 Mupirocin 2% Ointment 22 Gm Tube TOP 1 applic TID ANTHONY Administration Naproxen 250 mg 12/14/19 16:57 12/16/19 22:22 Naproxen 500 Mg Tab PO 250 mg BIDPRN PRN Administration Pain Pantoprazole Sodium 40 mg 12/15/19 09:00 12/17/19 09:50 Pantoprazole 40 Mg Tab PO 40 mg DAILY ANTHONY Administration Pioglitazone HCl 30 mg 12/17/19 09:00 12/17/19 09:49 Pioglitazone Hcl 15 Mg Tab PO 30 mg DAILY ANTHONY Administration Rosuvastatin Calcium 20 mg 12/14/19 21:00 12/16/19 22:20 Rosuvastatin 20 Mg Tab PO 20 mg HS ANTHONY Administration - Exam Eye: PERRL, anicteric sclera Heart: RRR, no murmur, no gallops, no rubs, normal peripheral pulses Respiratory: CTAB, no wheezes, no rales, no ronchi, normal chest expansion, no tachypnea Gastrointestinal: soft, non-tender, non-distended, normal bowel sounds, no palpable masses, no hepatomegaly Extremities: no cyanosis, no edema Neurological: no focal deficits Hosp A/P (1) Right sided weakness Code(s): R53.1 - WEAKNESS Status: Acute (2) Electrocution and nonfatal effects of electric current Code(s): T75.4XXA - ELECTROCUTION, INITIAL ENCOUNTER Status: Acute (3) DMII (diabetes mellitus, type 2) Status: Chronic (4) HLD (hyperlipidemia) Code(s): E78.5 - HYPERLIPIDEMIA, UNSPECIFIED Status: Chronic (5) HTN (hypertension) Code(s): I10 - ESSENTIAL (PRIMARY) HYPERTENSION Status: Chronic (6) Marijuana abuse Code(s): F12.10 - CANNABIS ABUSE, UNCOMPLICATED Status: Chronic (7) Schizophrenia Code(s): F20.9 - SCHIZOPHRENIA, UNSPECIFIED Status: Chronic (8) Methamphetamine abuse Code(s): F15.10 - OTHER STIMULANT ABUSE, UNCOMPLICATED Status: Chronic - Plan * Right sided weakness and right lower extremity pain- ? etiology- MRI findings were noted, No evidence of significant pathology * Pain may be due to Neuropathy induced by the electrical Shock, and hopefully should improve over time * Will add B- complex vitamin, and Gabapentin q hs * He is stable for discharge
--- NOTE | 2019-12-17 23:31 | DIS ---
DATE OF ADMISSION: 12/14/2019 DATE OF DISCHARGE: 12/17/2019 DISCHARGE DISPOSITION: Home. DISCHARGE DIAGNOSES: 1. Status post nonfatal electrocution. 2. Right lower extremity pain and weakness secondary to #1. 3. Diabetes mellitus type 2. 4. Hyperlipidemia. 5. Fibromyalgia. 6. Bipolar disorder. 7. Schizophrenia. DISCHARGE MEDICATIONS: 1. B complex plus folic acid was added. 2. Continue Motrin 400 mg p.o. q.i.d. 3. Reglan 10 mg p.o. b.i.d. 4. Protonix 40 mg p.o. daily. 5. Actos 30 mg p.o. daily. 6. Lexapro 20 mg p.o. daily. 7. Hyoscyamine 0.375 mg b.i.d. 8. Glipizide 5 mg p.o. t.i.d. 9. Gabapentin 600 mg twice a day. 10. Dapagliflozin 10 mg p.o. daily. 11. Cozaar 100 mg p.o. daily. 12. Celebrex 200 mg p.o. b.i.d. 13. Atorvastatin 40 mg twice a day. IMAGING DONE DURING THE HOSPITAL STAY: The patient had an MRI of the brain, which was negative for any acute intracranial abnormalities. Also had an MRI of the lumbar spine, which showed some degenerative disk changes with some osteophyte complexes at the level of L4-L5 and L5-S1, but no significant encroachment on the spinal cord. The patient had an echocardiogram, in which there was no evidence of patent foramen ovale or atrial septal defect. The EF was 50% to 55%. CODE STATUS: Full code. ALLERGIES: TO CEPHALEXIN, HYDROCODONE, METFORMIN, PENICILLIN, AND TRAMADOL. HOSPITAL COURSE: Mr. 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 He fell to the ground and was unconscious for an unknown period of time. When he came to, he called for help and was brought to the emergency room. It was noted that he had some swelling and abrasion on the right hand and he noticed having pain in his back and into the right leg. He was evaluated by Neurology and also had an MRI of the brain. No evidence of any bleed or injury. No evidence of any stroke. It was noted that his urine drug screen was positive for methamphetamine, amphetamine, benzodiazepines, and cannabinoids. It is felt that the symptoms could be a combination of both the electrical shock as well as the polysubstance abuse. As a precaution, we did get an MRI of the lumbar spine to make sure he did not have an injury to his low back that may explain his symptoms. This was essentially negative. It is also very difficult to determine his physical exam as he appears to have more strength when he is distracted than when you directly ask him and it is unclear whether or not he is participating with full effort. Since there is no objective findings, it is suspected that he may have had some nerve injury due to the electric shock, which should get better with time and to help facilitate this, we will be placing him on a B complex vitamin. He is already on Neurontin. He can continue this and is to have close outpatient followup with his primary care physician in 1 to 2 weeks. Job ID: [id number]
== END 2019-12-17 14:17 | disposition home or self-care (01) ==
LOC: ERS 14:56 → 2SE 15:36
PROVIDERS: ADMIT Internal Medicine; ATTEND Internal Medicine
DX: R53.1 Weakness (principal); T75.4XXA Electrocution, initial encounter; E11.9 Type 2 diabetes mellitus without complications; E78.5 Hyperlipidemia, unspecified; M79.7 Fibromyalgia; F31.9 Bipolar disorder, unspecified; F20.9 Schizophrenia, unspecified; F19.10 Other psychoactive substance abuse, uncomplicated; Z79.899 Other long term (current) drug therapy; Z88.0 Allergy status to penicillin; Z88.1 Allergy status to other antibiotic agents; Z88.5 Allergy status to narcotic agent; Z88.8 Allergy status to other drugs, medicaments and biological substances; Z20.828 Contact with and (suspected) exposure to other viral communicable diseases; W86.8XXA Exposure to other electric current, initial encounter
CPT/HCPCS: 36415; 36416; 70551; 72148; 80048; 80053; 80061; 80306; 81001; 82607; 82746; 84443; 85025; 87635; 90471; 90715; 93005; 93306; 96361; 96372; 96375; G0378; J1650; J1815; J1885; J2270; U0003

== ENCOUNTER 2020-12-22 11:45 | Emergency (ER) | payer OTHER ==
[2020-12-22 12:31] LABS: #Basophils 0.1 thou/uL (0.0-0.2); #Eosinphils 0.3 thou/uL (0.0-0.7); #Lymphocytes 2.7 thou/uL (1.20-3.40); #Monocytes 0.6 thou/uL (0.11-0.59); #Neutrophils 5.4 thou/uL (1.40-6.50); %Basophils 0.8 % (0.0-1.0); %Lymphocytes 29.6 % (21.0-51.0); %Monocytes 6.3 % (0.0-10.0); %Neutrophils 60.4 % (42.0-75.0); Hemoglobin 15.8 g/dL (14.0-18.0); Mean Corpuscular HGB CONC 32.9 g/dL (32.0-36.0); Mean Corpuscular Hemoglobin 29.4 pg (27.0-31.0); Mean Corpuscular Volume 89.5 fL (78.0-98.0); Mean Platelet Volume 7.6 fL (7.4-10.4); Platelet Count 269 thou/uL (130-400); RBC Distribution Width 12.2 % (11.5-14.5); Red Blood Cell (RBC) Count 5.37 mill/uL (4.70-6.10)
[2020-12-22 13:05] LABS: ALT (SGPT) 31 U/L (8-55); AST (SGOT) 17 U/L (5-34); Albumin 4.3 g/dL (3.5-5.0); Alkaline Phosphatase 114 U/L (40-110); Anion Gap 17 mmol/L (10-20); BUN (Urea Nitrogen) 15 mg/dL (8.9-20.6); Bilirubin, Total 0.5 mg/dL (0.2-1.2); CK (CPK) 23 U/L (30-200); Calc. Creatinine Clearance 0 mL/min (70-130); Calcium 9.1 mg/dL (7.8-10.44); Carbon Dioxide 20 mmol/L (22-29); Chloride 101 mmol/L (98-107); Globulin 3.3 g/dL (2.4-3.5); Glucose 484 mg/dL (70-105); Potassium 4.7 mmol/L (3.5-5.1); Protein, Total 7.6 g/dL (6.0-8.3); Sodium 133 mmol/L (136-145)
[2020-12-22 15:54] LABS: Bilirubin Negative (Negative); Blood, Urine Negative (Negative); Clarity Clear (Clear); Glucose, Urine (Dipstick) Greater than 1000 mg/dL (Negative); Ketone, Urine Negative (Negative); Leukocyte Negative Leu/uL (Negative); Nitrite Negative (Negative); Protein, Urine (Dipstick) Negative (Neg-Trace); Specific Gravity, Urine 1.036 (1.002-1.036); Urobilinogen Normal mg/dL (Less than 2)
== END 2020-12-22 18:10 | disposition home or self-care (01) ==
LOC: ERS 11:45
DX: E11.65 Type 2 diabetes mellitus with hyperglycemia (principal); E78.5 Hyperlipidemia, unspecified; E78.00 Pure hypercholesterolemia, unspecified; M79.7 Fibromyalgia; F17.210 Nicotine dependence, cigarettes, uncomplicated; Z79.899 Other long term (current) drug therapy
CPT/HCPCS: 36415; 36416; 70450; 71045; 80053; 81003; 82550; 85025; 93005; 94760

== ENCOUNTER 2020-12-28 13:52 | Emergency (ER) | payer OTHER ==
[2020-12-28] MEDS ORDERED: Ketorolac Tromethamine 30 MG/ML VIAL ONE (14:53)
== END 2020-12-28 15:10 | disposition home or self-care (01) ==
LOC: ERS 13:52
DX: M54.31 Sciatica, right side (principal)
CPT/HCPCS: 96372; 99283; J1885

== ENCOUNTER 2024-04-14 08:32 | Emergency (ER) | payer BC, MEDICARE ==
[2024-04-14] MEDS ORDERED: Boostrix 0.5 ML (Tdap) VIAL (>/=7 yrs of age) ONE (08:55)
== END 2024-04-14 09:30 | disposition home or self-care (01) ==
LOC: ERS 08:32
DX: S91.331A Puncture wound without foreign body, right foot, initial encounter (principal); E11.9 Type 2 diabetes mellitus without complications; F17.210 Nicotine dependence, cigarettes, uncomplicated; K21.9 Gastro-esophageal reflux disease without esophagitis; Z79.899 Other long term (current) drug therapy; W26.8XXA Contact with other sharp object(s), not elsewhere classified, initial encounter
CPT/HCPCS: 90471; 90715

== ENCOUNTER 2024-04-29 13:17 | Inpatient (IN) | payer BC, MEDICARE ==
[~2024-04-29 13:17] MED LIST changes: -Iopamidol 370 76% 100 ML VIAL ONE; +Iopamidol-370 76% 500 ML MDV (1 ML CHARGE) ONE
[2024-04-29] MEDS ORDERED: Morphine 4 MG/ML VIAL ONE (13:46)
[2024-04-29] MEDS ORDERED: Ondansetron PF 4 MG/2 ML Vial ONE (13:47)
[2024-04-29 14:02] LABS: #Basophils 0.06 10x3/uL (0.0-0.2); %Basophils 0.9 % (0.0-1.0); %Eosinophils 3.2 % (0.0-10.0); %Lymphocytes 35.4 % (21.0-51.0); %Neutrophils 48.2 % (42.0-75.0); Hematocrit 37.4 % (42.0-52.0); Hemoglobin 12.6 g/dL (14.0-18.0); Mean Corpuscular HGB CONC 33.7 g/dL (32.0-36.0); Mean Corpuscular Hemoglobin 27.8 pg (27.0-31.0); Mean Corpuscular Volume 82.6 fL (78.0-98.0); Mean Platelet Volume 8.6 fL (7.4-10.4); Platelet Count 384 10x3/uL (130-400); RBC Distribution Width 12.9 % (11.5-14.5); Red Blood Cell (RBC) Count 4.53 mill/uL (4.70-6.10)
[2024-04-29 14:13] LABS: ALT (SGPT) 11 U/L (Less than 45); AST (SGOT) 18 U/L (11-34); Albumin 3.1 g/dL (3.1-4.5); Alkaline Phosphatase 118 U/L (40-110); Anion Gap 14 mmol/L (10-20); BUN (Urea Nitrogen) 11 mg/dL (8.9-20.6); Bilirubin, Total 0.2 mg/dL (0.3-1.2); Calc. Creatinine Clearance 0 mL/min (70-130); Calcium 8.5 mg/dL (7.8-10.44); Carbon Dioxide 22 mmol/L (22-29); Chloride 105 mmol/L (98-107); Estimated GFR 119; Globulin 3.5 g/dL (2.4-3.5); Glucose 218 mg/dL (70-105); Potassium 3.7 mmol/L (3.5-5.1); Protein, Total 6.6 g/dL (6.0-8.3); Sodium 137 mmol/L (136-145)
[2024-04-29] MEDS ORDERED: Vancomycin 1 GM/200 ML (FROZEN) BAG ONE (14:27)
[2024-04-29] MEDS ORDERED: fentaNYL 50 mcg/mL 1 mL Vial ONE (15:06)
[2024-04-29] MEDS ORDERED: Ondansetron PF 4 MG/2 ML Vial IVP PRN (15:57)
[2024-04-29] MEDS ORDERED: Electrolyte Replacement Protocol 1 EACH IVPB SCH (15:57)
[2024-04-29] MEDS ORDERED: Acetaminophen 650 MG Suppository PR PRN (15:57)
[2024-04-29] MEDS ORDERED: Calcium Carbonate 500 MG ChewTAB PO PRN (15:57)
[2024-04-29] MEDS ORDERED: Ondansetron ODT 4 MG TAB PO PRN (15:57)
[2024-04-29] MEDS ORDERED: Insulin Lispro 100 UNIT/ML 10 ML VIAL SC PRN (16:02)
[2024-04-29] MEDS ORDERED: Dextrose 50% Abboject 50 ML SYRINGE SLOW IVP PRN (16:02)
[2024-04-29] MEDS ORDERED: Dextrose 5% in Water 1,000 ML IV PRN (16:02)
[2024-04-29] MEDS ORDERED: Glucagon 1 MG/ML KIT IM PRN (16:02)
[2024-04-29] MEDS ORDERED: Morphine 4 MG/ML VIAL SLOW IVP PRN (16:03)
[2024-04-29 16:44] LABS: Amphetamine Detected (NotDetected); Barbiturates Screen Not Detected (NotDetected); Benzodiazepine Screen Not Detected (NotDetected); Cocaine Metabolite Screen Not Detected (NotDetected); Methadone Not Detected (NotDetected); Methamphetamine Detected (NotDetected); Opiate Screen Detected (NotDetected); Oxycodone Screen Not Detected (NotDetected); Phencyclidine (PCP) Not Detected (NotDetected); THC/Cannabinoid Screen Detected (NotDetected); Tricyclic Screen Not Detected (NotDetected)
[2024-04-29 17:12] VITALS: BMI 26.6
[2024-04-29] MEDS: Clindamycin/D5W 900 MG in Premix 1 BAG IVPB SCH (17:16)
[2024-04-29] MEDS: Acetaminophen 325 MG TAB PO PRN (17:16)
[2024-04-29] MEDS ORDERED: Vancomycin 1 GM in Premix 1 BAG IVPB SCH (21:00)
[2024-04-29] MEDS: Clindamycin/D5W 600 MG in Premix 1 BAG IVPB SCH (23:15)
[2024-04-30] MEDS: Vancomycin 1.5 GRAM/300 ML BAG 1.5 GM in Premix 1 BAG IVPB SCH (00:03)
[2024-04-30 06:32] LABS: #Basophils 0.06 10x3/uL (0.0-0.2); %Basophils 0.9 % (0.0-1.0); %Eosinophils 4.2 % (0.0-10.0); %Lymphocytes 40.1 % (21.0-51.0); %Monocytes 12.9 % (0.0-10.0); %Neutrophils 41.6 % (42.0-75.0); Hematocrit 40.6 % (42.0-52.0); Hemoglobin 13.1 g/dL (14.0-18.0); Mean Corpuscular HGB CONC 32.3 g/dL (32.0-36.0); Mean Corpuscular Hemoglobin 27.6 pg (27.0-31.0); Mean Corpuscular Volume 85.7 fL (78.0-98.0); Mean Platelet Volume 8.5 fL (7.4-10.4); Platelet Count 381 10x3/uL (130-400); Red Blood Cell (RBC) Count 4.74 mill/uL (4.70-6.10)
[2024-04-30 06:42] LABS: Vancomycin, Random 13.2 ug/mL (See Comment)
[2024-04-30 06:49] LABS: Anion Gap 11 mmol/L (10-20); BUN (Urea Nitrogen) 8 mg/dL (8.9-20.6); Calc. Creatinine Clearance 173 mL/min (70-130); Calcium 8.3 mg/dL (7.8-10.44); Carbon Dioxide 25 mmol/L (22-29); Chloride 109 mmol/L (98-107); Estimated GFR 119; Glucose 131 mg/dL (70-105); Potassium 3.6 mmol/L (3.5-5.1); Sodium 141 mmol/L (136-145)
[2024-04-30] MEDS: Escitalopram Oxalate 20 mg Tablet PO SCH (08:28)
[2024-04-30] MEDS: Atorvastatin Calcium 40 MG TAB PO SCH (08:28)
[2024-04-30] MEDS: Enoxaparin 40 MG (0.4 mL) SYRINGE SC SCH (08:28)
[2024-04-30] MEDS: Pantoprazole 40 MG DR.TAB PO SCH (08:28)
[2024-04-30] MEDS: HYDROcodone/Acetaminophen 10/325 mg Tablet PO PRN (13:12)
[2024-04-30] MEDS ORDERED: Magnevist 469MG/ML 20 ML VIAL ONE (13:32)
[2024-04-30] MEDS: Vancomycin (BATCH) 1.75 GM in Premix 1 BAG IVPB SCH (13:56)
[2024-04-30] MEDS: Insulin Lispro 100 UNIT/ML 10 ML VIAL SC PRN (17:32)
[2024-05-01 06:05] LABS: Vancomycin, Random 23.7 ug/mL (See Comment)
[2024-05-01] MEDS: Losartan 25 MG TAB PO SCH (08:10)
[2024-05-01] MEDS: Senokot S 8.6-50 MG TAB PO PRN (17:07)
[2024-05-02 12:46] VITALS: BP 128/91; TEMP 98.4
== END 2024-05-02 15:53 | disposition home or self-care (01) | DRG 540 ==
LOC: ERS 13:17 → T4-A 15:22
PROVIDERS: ADMIT Internal Medicine; ATTEND Internal Medicine
DX: M86.9 Osteomyelitis, unspecified (principal); E87.20 Acidosis, unspecified; I10 Essential (primary) hypertension; E78.5 Hyperlipidemia, unspecified; E11.9 Type 2 diabetes mellitus without complications; F39 Unspecified mood [affective] disorder; M79.7 Fibromyalgia; F41.9 Anxiety disorder, unspecified; F31.9 Bipolar disorder, unspecified; F20.9 Schizophrenia, unspecified; T75.4XXA Electrocution, initial encounter; F10.90 Alcohol use, unspecified, uncomplicated; F12.10 Cannabis abuse, uncomplicated; F15.10 Other stimulant abuse, uncomplicated; Z98.890 Other specified postprocedural states; Z82.49 Family history of ischemic heart disease and other diseases of the circulatory system; Z88.8 Allergy status to other drugs, medicaments and biological substances; Z88.0 Allergy status to penicillin; Z79.899 Other long term (current) drug therapy; Z87.891 Personal history of nicotine dependence; Z88.1 Allergy status to other antibiotic agents; Z88.5 Allergy status to narcotic agent
CPT/HCPCS: 36415; 36416; 80048; 80053; 80202; 80306; 83605; 85025; 86141; 87040; 96374; 96375; J1650; J1815; J2270; J2405; J3010; J3370; J3490; Q9967

== ENCOUNTER 2024-11-08 13:11 | Emergency (ER) | payer BC, MEDICARE ==
[2024-11-08 16:24] LABS: #Basophils 0.06 10x3/uL (0.0-0.2); #Eosinophils 0.16 10x3/uL (0.0-0.7); #Monocytes 0.76 10x3/uL (0.11-0.59); #Neutrophils 5.18 10x3/uL (1.40-6.50); %Basophils 0.7 % (0.0-1.0); %Eosinophils 1.9 % (0.0-10.0); %Lymphocytes 27.8 % (21.0-51.0); %Monocytes 8.9 % (0.0-10.0); %Neutrophils 60.5 % (42.0-75.0); Hematocrit 39.0 % (42.0-52.0); Hemoglobin 12.4 g/dL (14.0-18.0); Mean Corpuscular Hemoglobin 27.4 pg (27.0-31.0); Mean Corpuscular Volume 86.3 fL (78.0-98.0); Platelet Count 291 10x3/uL (130-400); Red Blood Cell (RBC) Count 4.52 mill/uL (4.70-6.10); White Blood Cell (WBC) Count 8.56 10x3/uL (4.8-10.8)
[2024-11-08 16:55] LABS: ALT (SGPT) 9 U/L (Less than 45); AST (SGOT) 13 U/L (11-34); Albumin 3.2 g/dL (3.1-4.5); Alkaline Phosphatase 105 U/L (40-110); Anion Gap 11 mmol/L (10-20); BUN (Urea Nitrogen) 12 mg/dL (8.9-20.6); Bilirubin, Total 0.2 mg/dL (0.3-1.2); Calc. Creatinine Clearance 0 mL/min (70-130); Calcium 8.8 mg/dL (7.8-10.44); Carbon Dioxide 29 mmol/L (22-29); Chloride 105 mmol/L (98-107); Globulin 3.0 g/dL (2.4-3.5); Glucose 103 mg/dL (70-105); Potassium 3.6 mmol/L (3.5-5.1); Sodium 141 mmol/L (136-145)
== END 2024-11-08 17:10 | disposition home or self-care (01) ==
LOC: ERS 13:11
DX: L02.31 Cutaneous abscess of buttock (principal); E11.9 Type 2 diabetes mellitus without complications; K21.9 Gastro-esophageal reflux disease without esophagitis; F17.210 Nicotine dependence, cigarettes, uncomplicated
CPT/HCPCS: 80053; 83605; 85025; 86141; 99282; Q0162